=== PATIENT | female | born 1965 | race Caucasian/White ===

== ENCOUNTER → 2017-09-01 | Outpatient (CLI) | payer MEDICARE, OTHER ==
[~2017-09-01] MED LIST: ALEN70TA5 PO; BACI3.5O7 OP; CHOL10003 PO; EZET10TA18 PO; GUAI600T47 PO; IOHEXOL 180 MG/ML 10 ML VIAL. ONE; LAMO100T PO; LETR2.5T18 PO; MELA3TAB2 PO; PANT40TA5 PO; VENL37.56 PO; methylPREDNISolone ACETATE 40 MG/ML VIAL. ONE; methylPREDNISolone ACETATE 80 MG/ML VIAL. ONE
--- NOTE | 2017-09-01 14:00 | PAIN ---
DATE OF SERVICE: 09/01/2017 CHIEF COMPLAINT: Neck and right upper extremity pain. HISTORY OF PRESENT ILLNESS: This is a 51-year-old female who presents with history of pain in the base of the neck and right upper extremity for about 6 months now, but much present for many, many years, worse over the past 6 months, intensity has gotten worse since January of this year and continues to get worse without any specific injury or action that she is aware of. Most recently, the patient reports this is continuing in the base of the neck, bilateral shoulders, into the right shoulder and arm, posterior, anterior, lateral and medial aspect of the forearm; upper arm and into the hand with some numbness and tingling in the hand with sleeping. The patient reports it is sharp, shooting, throbbing, radiating, cramping and aching with radiation only on the right side and she is right hand dominant. The patient reports it awakens her from sleep at least 4-5 times at night with tingling in her hands as well as her arm and shoulder. It does not affect her bowel or bladder control or ability to walk. She has tried metaxalone as well as cyclobenzaprine and meloxicam. The cyclobenzaprine helped, but has not had any for about a month. She has tried chiropractic treatment as well as doing exercises at gym and home. Nothing has really helped the pain decrease and she has had no formal physical therapies at this time, but again is doing a lot of stretching and strengthening exercises from her chiropractic office and doing this at home and at the gym as well. The patient reports she has weakness, she has been dropping items at the right arm and becoming more noticeable as time goes on. The patient reports disability rating from 0-10, 10 being the worst and 8 with family and home responsibilities, recreation and occupation, 6 with social activity and sexual behavior, 7 with self care and 3 with life support activities. 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 C6-C7 shows a probable right foraminal disk protrusion or disk osteophyte complex without significant foraminal stenosis. PAST MEDICAL HISTORY: Significant for gastroesophageal reflux, arthritis, dizziness, bipolar disorder, anxiety, quit cigarette smoking 1 year ago, history of breast cancer as well in 2016 status post lumpectomy. Other surgeries include tonsillectomy and bilateral sinus surgeries. CURRENT MEDICATIONS: List includes pantoprazole, bacitracin ointment, Mucinex, vitamin D3, melatonin, letrozole, venlafaxine, alendronate, Zetia. ALLERGIES: THE PATIENT IS ALLERGIC TO SULFA. FAMILY HISTORY: Significant for arthritis as well as hypercholesterolemia. SOCIAL HISTORY: The patient does not drink alcohol, does not smoke. She is , lives with her spouse, lives without children at home and lives locally in [place], [place], reports she is currently on disability, but not for an item related to the current pain syndrome. REVIEW OF SYSTEMS: The patient's review of systems is positive for those items mentioned in the history of present illness. It is complete, full and well documented on the patient's chart. All systems reviewed and otherwise negative. PHYSICAL EXAMINATION: VITAL SIGNS: Today, the patient's blood pressure is 120/82, pulse 91, respirations 18, temperature is 98.1 degrees Fahrenheit, height is 5 feet 7 inches, weight is 157 pounds. GENERAL: The patient is awake, alert, oriented, appropriate, very pleasant demeanor. HEENT: Head shows normocephalic, atraumatic. Extraocular movements are intact, symmetrical. Oral cavity, mucous membranes are moist and pink. Dentition is intact. NECK: Shows anterior throat is supple without palpable lymphadenopathy noted. Swallow reflex is symmetrical. CHEST: Shows normal on inspection. Breath sounds clear to auscultation bilaterally. HEART: Shows S1 and S2 clear. No murmurs auscultated. ABDOMEN: Soft, nontender, nondistended. No palpable organomegaly is noted. No rebound or guarding demonstrated. BACK: Shows spine grossly in midline, normal-appearing cervical lordotic curvature, thoracic kyphotic curvature, and lumbar lordotic curvature. No previous bruises, lesions, rashes or scars are noted. The patient's neck shows with inspection symmetrical posterior cervical paraspinous musculature. Palpation shows some moderate tenderness, but only in the inferior aspect of the cervical spine only on the right side with palpation, no significant tenderness on the left side. The patient has good rotational motion both laterally as well as extension and flexion with some pain reported with right and left lateral rotation, but performs it past 45 degrees right and left, full extension, full forward flexion without pain on flexion, but with extension in the base of the neck and the right lateral trapezius. EXTREMITIES: Upper extremities show deep tendon reflexes at 2+ in the biceps and triceps tendons. Motor exam is approximately 4 on a scale of 5 with right assistant scientist strength 5/5 on the left, right triceps and biceps also 4/5 and 5/5 on the left. Peripheral pulses are 2+ radial distribution. No peripheral edema is noted. No clubbing, no cyanosis. Upper extremities are warm and dry to touch, equal in color and appearance. The patient's shoulders show good rotational motion both laterally as well as extension above the head without significant tenderness. The patient shows no loss of strength on resistance with shoulder shrug bilaterally and no loss of strength with abduction of the shoulders to 90 degrees with resistance, but with pain reported in the right neck and shoulder. IMPRESSION: 1. This is a 51-year-old female with approximate 6-month history of increasing pain in the base of the neck and right upper extremity in a radicular fashion. 2. MRI scan of the cervical spine as noted. 3. Arthritis. 4. History of breast cancer. 5. Bipolar disorder. PLAN: Options were discussed with the patient including conservative medical management, physical therapy, interventional techniques. She would like to pursue interventional techniques. We discussed a cervical epidural steroid injection using descriptions as well as anatomical models to describe the procedure. Risks were then discussed including, but not limited to bleeding, infection, possibility of epidural hematoma and subsequent neurological compromise, dural puncture headaches, spinal cord and/or nerve damage, side effects of steroid medication and poor results regarding pain control. The patient understands and wishes to proceed. The patient will return to clinic in approximately 2 weeks for followup, was counseled on return appointment, activity level and side effects to be aware of. DIAGNOSIS: Cervical radiculopathy with cervical degenerative disk disease and cervical herniated disk. PROCEDURE: Cervical epidural steroid injection in translaminar approach at C6-C7 level using C-arm fluoroscopic guidance under sterile prep and drape and local anesthetic. MEDICATIONS INJECTED: A total of 120 mg of Depo-Medrol plus 5 mL preservative-free normal saline and 2 mL Isovue for contrast. CONDITION AT DISCHARGE: Stable. The patient tolerated the procedure well and had no complications. CYRUS LOPEZ MD DR: DIYA/sonido JOB#: [id number] / [id number] LATESHA Oropeza
== END | disposition home or self-care (01) ==
LOC: PNCL 09:29
PROVIDERS: ATTEND Anesthesiology
DX: M50.123 Cervical disc disorder at C6-C7 level with radiculopathy (principal); M19.91 Primary osteoarthritis, unspecified site; Z85.3 Personal history of malignant neoplasm of breast; Z88.2 Allergy status to sulfonamides
CPT/HCPCS: 62321; J1030; J1040

== ENCOUNTER → 2017-09-15 | Outpatient (CLI) | payer MEDICARE, OTHER ==
--- NOTE | 2017-09-15 10:51 | PAIN ---
DATE OF SERVICE: 09/15/2017 DIAGNOSIS: Cervical radiculopathy with cervical degenerative disease, cervical herniated disk. HISTORY OF PRESENT ILLNESS: The patient is a 52-year-old female who returns for followup status post cervical epidural steroid injection x 1. The patient reports about 75% improvement in the neck, shoulders, and right upper extremity. The patient reports still some pain in these regions with 7 on a scale of 10 at its worst, 4 on average and 2 on a scale of 10 at its least and is a 2 this morning. The patient reports no new motor or sensory deficits, has been increasing her activity with her right upper extremity to a much greater ease with comfort. Also, some significant pain still in the right elbow. The patient reports a sharp tight shooting, cramping, radiating. No new motor or sensory deficits, no new complaints. PHYSICAL EXAMINATION: VITAL SIGNS: The patient's blood pressure 122/84, pulse 88, respirations 18, temperature is 97.6 degrees Fahrenheit, weighs 155 pounds. GENERAL: The patient is awake, alert, oriented, appropriate, very pleasant demeanor. HEENT: Head shows normocephalic, atraumatic. Extraocular movements are intact, symmetrical. Oral cavity, mucous membranes are moist and pink. Dentition is intact. NECK: Shows anterior throat supple without palpable lymphadenopathy noted. Swallow reflex is symmetrical. MUSCULOSKELETAL: Posterior cervical musculature shows some moderate tenderness with palpation, but symmetrical. The patient has good rotational motion of cervical spine, both laterally, greater than 45 degrees right and left as well as extension and full forward flexion without significant increase in pain. The patient reports no significant tenderness with palpation with some moderate tenderness with palpation in the inferior cervical paraspinous muscles into the superior medial and lateral trapezius, more on the right than the left. Upper extremities showed deep tendon reflexes at 2+ in the biceps and triceps tendons, are equal. Motor exam remains strong with approximately 5/5 left escrow secretary and bicep, tricep and 4/5 on the right. Peripheral pulses are 2+ radial distribution. No peripheral edema is noted. Options were discussed with the patient and the patient's old chart was reviewed as her current medication regimen updated. Current review of systems updated today as well. We will proceed with a second cervical epidural steroid injection today with fluoroscopic guidance. Risks were again discussed including, but not limited to bleeding, infection, possibility of epidural hematoma and subsequent neurologic compromise, dural puncture, headaches, spinal cord and/or nerve damage, side effects of steroid medication and poor results regarding pain control. The patient understands and wishes to proceed. The patient will return to clinic in approximately 2 weeks for followup, was counseled on return appointment, activity level and side effects to be aware of. DIAGNOSIS: Cervical radiculopathy with cervical degenerative disease, cervical herniated disk. PROCEDURE: Cervical epidural steroid injection in translaminar approach at C6-C7 level using C-arm fluoroscopic guidance under sterile prep and drape using local anesthetic. Medication injected a total of 120 mg Depo-Medrol plus 5 mL of preservative-free normal saline and 2 mL of Isovue for contrast. CONDITION AT DISCHARGE: Stable. The patient tolerated procedure well, had no complications. CYRUS LOPEZ MD DR: DIYA/sonido JOB#: [id number] / [id number]
== END | disposition home or self-care (01) ==
LOC: PNCL 08:30
PROVIDERS: ATTEND Anesthesiology
DX: M50.123 Cervical disc disorder at C6-C7 level with radiculopathy (principal); M19.90 Unspecified osteoarthritis, unspecified site; Z88.2 Allergy status to sulfonamides; Z85.3 Personal history of malignant neoplasm of breast
CPT/HCPCS: 62321; J1030; J1040